=== PATIENT | male | born 1980 | race Caucasian/White ===

== ENCOUNTER 2024-01-29 16:06 | Emergency (ER) | payer MEDICAID, OTHER ==
[~2024-01-29] VITALS: Ht 175.3 cm; Wt 73.8 kg
[2024-01-29 18:30] VITALS: BP 134/55; PULSE 91; RESP 15; TEMP 98.9; O2SAT 97
== END 2024-01-29 19:55 | disposition left against medical advice (07) ==
LOC: ER 16:06
DX: F41.9 Anxiety disorder, unspecified (principal); Z76.0 Encounter for issue of repeat prescription; Z53.21 Procedure and treatment not carried out due to patient leaving prior to being seen by health care provider

== ENCOUNTER 2024-03-23 12:28 | Inpatient (IN) | payer MEDICAID ==
[~2024-03-23] VITALS: Ht 172.7 cm; Wt 72.0 kg
[2024-03-23 12:34] VITALS: BP 135/94; RESP 18; O2SAT 100
[2024-03-23 12:37] VITALS: PULSE 90
[2024-03-23 12:57] LABS: Basophils # (auto) 0.1 10 ^3/uL (0-0.2); Basophils % (auto) 0.9 % (0.0-2.0); Eosinophils # (auto) 0.2 10 ^3/uL (0-0.8); Hematocrit 40.6 % (41.0-53.0); Hemoglobin 13.7 g/dL (13.5-17.5); Lymphocytes # (auto) 2.2 10 ^3/uL (0.4-5.4); Lymphocytes % (auto) 35.5 % (10.0-50.0); Mean Corpuscular Hemoglobin 29.5 pg (28.0-32.0); Mean Corpuscular Hgb Conc. 33.7 g/dL (32.0-36.0); Mean Corpuscular Volume 87.6 fL (80.0-100.0); Monocytes # (auto) 0.7 10 ^3/uL (0-1.3); Monocytes % (auto) 10.7 % (0.0-12.0); Neutrophils # (auto) 3.1 10 ^3/uL (1.6-8.6); Neutrophils % (auto) 49.9 % (37.0-80.0); Red Blood Cells 4.63 10^6/uL (4.5-5.90); Red Cell Distribution Width 12.7 % (11.8-14.3); White Blood Cell 6.2 10^3/uL (4.4-10.8)
[2024-03-23 13:11] LABS: Alanine Aminotransferase 14 U/L (7-40); Albumin 4.6 g/dL (3.2-4.8); Alkaline Phosphatase 91 U/L (46-116); Anion Gap 5 (5-15); Aspartate Aminotransferase 12 U/L (13-40); BUN/Creatinine Ratio 15.6 (10.0-20.0); Bilirubin, Total 0.4 mg/dL (0.2-1.0); Blood Urea Nitrogen 14 mg/dL (9-23); Calcium 9.5 mg/dL (8.7-10.4); Carbon Dioxide 30 mmol/L (20-30); Chloride 102 mmol/L (98-107); Glucose 92 mg/dL (74-106); Potassium 3.7 mmol/L (3.5-5.1); Sodium 137 mmol/L (136-145); Total Protein 7.5 g/dL (5.7-8.2)
[2024-03-23] MEDS: ASPirin 325 MG TAB PO ONE (13:21)
[2024-03-23] MEDS: NITROGLYCERIN 0.4 MG SL TAB SL ONE (13:22)
[2024-03-23] MEDS ORDERED: NITROGLYCERIN 0.4 MG SL TAB SL PRN (15:30)
[2024-03-23] MEDS ORDERED: COLCHICINE 0.6 MG CAP PO ONE (15:30)
[2024-03-23] MEDS ORDERED: MORPHINE SULFATE INJ 2 MG/ml SYRG IV PRN (15:30)
[2024-03-23] MEDS ORDERED: ESCI1TAB36 PO (15:31)
[2024-03-23] MEDS ORDERED: GABA-1250 PO (15:31)
[2024-03-23] MEDS ORDERED: CLON0.1T PO (15:31)
[2024-03-23] MEDS ORDERED: hydrALAZINE HCL 20 MG/ML VL IV PRN (16:30)
[2024-03-23 16:42] LABS: Erythrocyte Sedimentation Rate 2 mm/hr (0-20)
[2024-03-23 17:00] LABS: Urine Bacteria None Seen /hpf (None Seen)
[2024-03-23 17:26] LABS: Amphetamine Screen, Urine Pos (NEGATIVE); Barbiturate Scree,Urine Neg (NEGATIVE); Benzodiazephine Screen, Urine Neg (NEGATIVE); Cannabinoid Screen, Urine Neg (NEGATIVE); Cocaine Screen, Urine Pos (NEGATIVE); Opiate Scree,Urine Neg (NEGATIVE); Phencyclidine Screen, Urine Neg (NEGATIVE)
[2024-03-23 17:37] LABS: Urine Blood Negative /uL (Negative); Urine Clarity Clear (Clear); Urine Color Colorless (Yellow); Urine Protein, UAD Negative (Negative); Urine Specific Gravity 1.005 (1.001-1.035); Urine Urobilinogen Normal (Negative); Urine WBC <1 /hpf (0 - 3); Urine pH 6.5 (5.0-9.0)
[2024-03-23 18:00] LABS: Magnesium 2.1 mg/dL (1.6-2.6)
[2024-03-23] MEDS ORDERED: GABAPENTIN 300 MG CAP PO SCH (22:00)
[2024-03-24] MEDS ORDERED: ASPirin 81 mg TAB PO SCH (10:00)
[2024-03-24] MEDS ORDERED: CITALOPRAM HYDROBR 20 MG TAB PO SCH (10:00)
[2024-03-24] MEDS ORDERED: cloNIDine HCL 0.1 MG TAB PO SCH (10:00)
[2024-03-24] MEDS ORDERED: COLCHICINE 0.6 MG CAP PO SCH (10:00)
== END 2024-03-23 20:25 | disposition left against medical advice (07) | DRG 207 ==
LOC: ER 12:28 → TELE 15:31 → UNDODISIN 20:25
PROVIDERS: ADMIT Registered Nurse; ATTEND Registered Nurse
DX: I30.9 Acute pericarditis, unspecified (principal); F15.10 Other stimulant abuse, uncomplicated; F17.210 Nicotine dependence, cigarettes, uncomplicated; F32.A Depression, unspecified; I10 Essential (primary) hypertension
CPT/HCPCS: 36415; 71045; 80053; 80061; 80307; 81001; 83735; 83880; 84443; 84484; 85025; 85652; 86141; 93005; G0378